=== PATIENT | male | born 1985 | race Two or more races ===

== ENCOUNTER 2018-06-21 01:09 | Emergency (ER) | payer SELFPAY ==
[~2018-06-21] VITALS: Ht 165.1 cm; Wt 92.5 kg
[2018-06-21 01:17] VITALS: Ht 165.1 cm; Wt 92.5 kg
[2018-06-21 07:48] VITALS: BP 116/42
== END 2018-06-21 07:48 | disposition home or self-care (01) ==
LOC: ED 01:09
DX: J20.9 Acute bronchitis, unspecified (principal); Z90.49 Acquired absence of other specified parts of digestive tract
CPT/HCPCS: J1885